=== PATIENT | female | born 1985 ===

== ENCOUNTER 2024-07-17 13:29 | Emergency (ER) | payer OTHER ==
[~2024-07-17] VITALS: Ht 162.6 cm; Wt 80.3 kg
[2024-07-17] MEDS ORDERED: predniSONE 20 MG TAB PO ONE (15:00)
[2024-07-17] MEDS ORDERED: KETOROLAC TROMETHAMINE 60 MG/2 ML VIAL IM ONE (15:00)
[2024-07-17] MEDS ORDERED: ACETAMINOPHEN 500 MG TAB PO ONE (15:00)
[2024-07-17] MEDS ORDERED: CYCLOBENZAPRINE HCL 10 MG TAB PO ONE (15:00)
[2024-07-17] MEDS ORDERED: METHYLPREDNISOLO4 M1 PO (15:14)
[2024-07-17] MEDS ORDERED: CYCLOBENZAPRINE10 MG PO (15:14)
[2024-07-17 16:21] VITALS: BP 121/84
== END 2024-07-17 16:22 | disposition home or self-care (01) ==
LOC: ED 13:29
DX: M54.42 Lumbago with sciatica, left side (principal); Z88.4 Allergy status to anesthetic agent
CPT/HCPCS: 96372; 99283; A9270; J1885; J7512